=== PATIENT | female | born 1990 | race African-American/Black ===

== ENCOUNTER 2022-02-06 05:23 | Emergency (ER) | payer MEDICAID ==
[~2022-02-06] VITALS: Ht 157.5 cm; Wt 51.3 kg
--- NOTE | 2022-02-06 06:15 | NUR ---
BIBSELF C/O COUGH FOR THE PAST WEEK WITH BODY ACHES . PT A/OX3 TOLERATING R/A WELL WITH NO SOB. PT AMBULATORY WITH STEADY GAIT.
[2022-02-06 06:18] VITALS: BP 122/74
[2022-02-06] MEDS ORDERED: PROM118S PO (06:28)
--- NOTE | 2022-02-06 06:39 | NUR ---
Patient discharged to home in stable condition. Written and verbal after care instructions given. Patient verbalizes understanding of instruction. PT ambulatory with a steady gait
[2022-02-07] MEDS ORDERED: PROM118S PO (11:11)
== END 2022-02-06 06:55 | disposition home or self-care (01) ==
LOC: ER 05:27
DX: J20.8 Acute bronchitis due to other specified organisms (principal); Z60.2 Problems related to living alone